=== PATIENT | female | born 1975 | race Caucasian/White ===

== ENCOUNTER 2018-12-29 10:30 | Outpatient (CLI) | payer BC | END 2018-12-29 11:30 | disposition home or self-care (01) | LOC: D.MAMMO 10:30 | DX: R92.8 Other abnormal and inconclusive findings on diagnostic imaging of breast (principal) ==

== ENCOUNTER → 2019-01-09 13:11 | Outpatient (CLI) | payer BC ==
[2016-08-09 08:03] VITALS: BMI 31.8
== END | disposition home or self-care (01) ==
LOC: D.US 13:11
PROVIDERS: ATTEND Surgery
DX: N63.20 Unspecified lump in the left breast, unspecified quadrant (principal)

== ENCOUNTER 2019-07-02 10:00 | Outpatient (CLI) | payer BC ==
[2016-08-09 08:03] VITALS: BMI 31.8
== END 2019-07-02 11:00 | disposition home or self-care (01) ==
LOC: D.MAMMO 10:00
PROVIDERS: ATTEND Surgery
DX: R92.8 Other abnormal and inconclusive findings on diagnostic imaging of breast (principal)